=== PATIENT | male | born 1975 | race Two or more races ===

== ENCOUNTER 2020-07-16 19:49 | Emergency (ER) | payer SELFPAY ==
[~2020-07-16] VITALS: Ht 175.3 cm; Wt 73.5 kg
[2020-07-16 19:53] VITALS: BP 111/73
--- NOTE | 2020-07-16 23:32 | NUR ---
CALLED FOR PT. PT NOT IN LOBBY AT THIS TIME.
[2020-07-17] MEDS ORDERED: SULFAMETH./TRIMETHOPRIM DS 800MG/160MG TABLET PO ONE (00:30)
[2020-07-17] MEDS ORDERED: SULFAMETH./TRIMETHOPRIM DS 800MG/160MG TABLET ONE (00:34)
[2020-07-17] MEDS ORDERED: MUPIROCIN OINT 2%, 22GM TP SCH (09:00)
== END 2020-07-17 00:49 | disposition home or self-care (01) ==
LOC: ED 20:19
DX: L03.115 Cellulitis of right lower limb (principal); M79.672 Pain in left foot; M79.671 Pain in right foot; F17.210 Nicotine dependence, cigarettes, uncomplicated; Z72.9 Problem related to lifestyle, unspecified
CPT/HCPCS: 99283; 99406